=== PATIENT | male | born 1970 | race Caucasian/White ===

== ENCOUNTER 2020-06-16 11:21 | Emergency (ER) | payer OTHER ==
[~2020-06-16] VITALS: Ht 170.1 cm; Wt 95.3 kg
[2020-06-16] MEDS ORDERED: IBUPROFEN600 MG PO (15:19)
[2020-06-16] MEDS ORDERED: HYDROCODONE-AC1 EAC1 PO (15:19)
== END 2020-06-16 15:21 | disposition home or self-care (01) ==
LOC: ED 11:21
DX: S76.111A Strain of right quadriceps muscle, fascia and tendon, initial encounter (principal); X58.XXXA Exposure to other specified factors, initial encounter; Y93.89 Activity, other specified; Y92.89 Other specified places as the place of occurrence of the external cause; Y99.8 Other external cause status